=== PATIENT | female | born 1960 | race Caucasian/White ===

== ENCOUNTER 2019-09-03 23:00 | Inpatient (IN) | payer BC ==
[~2019-09-03] VITALS: Ht 175.3 cm; Wt 61.7 kg
[2019-09-04] MEDS ORDERED: OXYCODONE HCL 5MG TABLET PO PRN (00:15)
[2019-09-04] MEDS ORDERED: DEXTROSE 50% WATER 50ML SYRINGE IV PRN (00:15)
[2019-09-04 00:32] VITALS: BP_SYST 118; BP_SYST 134; BP_DIAS 60; BP_DIAS 72
[2019-09-04] MEDS ORDERED: BISACODYL 5MG TABLET PO PRN (00:45)
[2019-09-04] MEDS: OXYCODONE HCL 5MG TABLET PO PRN ×2 (00:58→09:59)
[2019-09-04] MEDS: ACETAMINOPHEN 325MG TABLET PO PRN ×3 (00:58→23:34)
[2019-09-04] MEDS: LORAZEPAM 1MG TABLET PO PRN ×2 (01:17→23:34)
[2019-09-04] MEDS ORDERED: MAGNESIUM CITRATE 300ML SOLUTION PO PRN (01:30)
[2019-09-04] MEDS ORDERED: ONDANSETRON HCL 4MG TABLET PO PRN (01:45)
[2019-09-04] MEDS ORDERED: SODIUM CHLORIDE 45ML SPRAY NS PRN (01:45)
[2019-09-04] MEDS ORDERED: METF-416 MT (01:48)
[2019-09-04 04:00] VITALS: BP 108/54
[2019-09-04] MEDS: SODIUM CHLORIDE 0.9% 1,000 ML IV SCH ×2 (04:00→15:59)
[2019-09-04] MEDS ORDERED: CEPHALEXIN 250MG CAPSULE PO NR (06:00)
[2019-09-04] MEDS: BLOOD SUGAR DIAGNOSTIC STRIP TEST SCH ×4 (06:02→21:22)
[2019-09-04] MEDS: OXYCODONE HCL 10MG TABLET SR 12HR PO PRN ×3 (06:19→21:46)
[2019-09-04 06:44] LABS: HEMATOCRIT 36.7 % (36.0-48.0); HEMOGLOBIN 12.8 g/dL (12.0-16.0); MEAN CORPUSCULAR HEMOGLOBIN 29.7 pg (28.0-32.0); MEAN CORPUSCULAR VOLUME 85.3 fL (81.0-99.0); PLATELET 327 x1000/uL (130-400)
[2019-09-04 06:49] LABS: CHLORIDE 103 mEq/L (98-107)
[2019-09-04] MEDS ORDERED: FAMOTIDINE 20MG TABLET PO SCH (09:00)
[2019-09-04] MEDS ORDERED: LIDOCAINE 5% PATCH TOP SCH (09:00)
[2019-09-04] MEDS: ALBUTEROL (0.083%) 2.5MG/3ML NEB HHN SCH ×2 (09:27→15:45)
[2019-09-04] MEDS: DOCUSATE SODIUM 100MG CAPSULE PO SCH ×2 (09:28→17:01)
[2019-09-04] MEDS: CEPHALEXIN 250MG CAPSULE PO SCH ×4 (09:29→21:45)
[2019-09-04] MEDS: ASPIRIN 81MG TABLET PO SCH (09:29)
[2019-09-04] MEDS: METHOCARBAMOL 500MG TABLET PO SCH ×2 (09:30→17:01)
[2019-09-04] MEDS: LISINOPRIL 5MG TABLET PO SCH (09:30)
[2019-09-04] MEDS: LACTOBACILLUS GG CAPSULE PO SCH (09:30)
[2019-09-04] MEDS: INSULIN LISPRO 100 UNITS/ML SUBCUT SCH ×4 (09:35→21:49)
[2019-09-04] MEDS: FAMOTIDINE 40MG TABLET PO SCH (09:36)
[2019-09-04] MEDS: GABAPENTIN 300MG CAPSULE PO SCH ×3 (09:37→21:44)
[2019-09-04 09:55] VITALS: BP 114/58
[2019-09-04 12:00] VITALS: BP 107/47
[2019-09-04] MEDS: HEPARIN 5000 UNITS/ML VIAL SUBCUT SCH ×2 (12:35→21:47)
[2019-09-04] MEDS: POLYETHYLENE GLYCOL 3350 (17GM) 1 DOSE PACK PO SCH (12:38)
[2019-09-04] MEDS: BISACODYL 10MG SUPP PR SCH (12:39)
[2019-09-04 16:00] VITALS: BP 94/53
[2019-09-04 20:00] VITALS: BP 112/57
[2019-09-04] MEDS: ATORVASTATIN CALCIUM 20MG TABLET PO SCH (21:45)
[2019-09-04] MEDS: LIDOCAINE 5% PATCH TOP SCH (21:47)
[2019-09-04] MEDS: INSULIN GLARGINE UD 100 UNITS/ML SYR SUBCUT SCH (21:49)
[2019-09-05] VITALS: BP 107/53
[2019-09-05 04:00] VITALS: BP 112/58
[2019-09-05] MEDS: BLOOD SUGAR DIAGNOSTIC STRIP TEST SCH ×4 (06:14→21:16)
[2019-09-05] MEDS: GABAPENTIN 300MG CAPSULE PO SCH ×3 (06:16→21:21)
[2019-09-05 08:00] VITALS: BP 106/57
[2019-09-05] MEDS: OXYCODONE HCL 10MG TABLET SR 12HR PO PRN ×4 (08:13→21:35)
[2019-09-05] MEDS: INSULIN LISPRO 100 UNITS/ML SUBCUT SCH ×4 (08:16→21:18)
[2019-09-05] MEDS: ALBUTEROL (0.083%) 2.5MG/3ML NEB HHN SCH ×3 (08:54→21:10)
[2019-09-05] MEDS: LISINOPRIL 5MG TABLET PO SCH (09:00)
[2019-09-05] MEDS ORDERED: METFORMIN HCL 500MG TABLET PO SCH (09:00)
[2019-09-05] MEDS: LACTOBACILLUS GG CAPSULE PO SCH (09:21)
[2019-09-05] MEDS: CEPHALEXIN 250MG CAPSULE PO SCH ×4 (09:21→21:16)
[2019-09-05] MEDS: DOCUSATE SODIUM 100MG CAPSULE PO SCH ×2 (09:21→18:23)
[2019-09-05] MEDS: FAMOTIDINE 40MG TABLET PO SCH (09:22)
[2019-09-05] MEDS: POLYETHYLENE GLYCOL 3350 (17GM) 1 DOSE PACK PO SCH (09:22)
[2019-09-05] MEDS: ASPIRIN 81MG TABLET PO SCH (09:22)
[2019-09-05] MEDS: HEPARIN 5000 UNITS/ML VIAL SUBCUT SCH ×2 (09:53→21:16)
[2019-09-05] MEDS: BISACODYL 10MG SUPP PR SCH (09:55)
[2019-09-05 12:00] VITALS: BP 128/71
[2019-09-05 16:37] VITALS: BP 116/58
[2019-09-05] MEDS: METFORMIN HCL 500MG TABLET PO SCH (18:23)
[2019-09-05 20:25] VITALS: BP 124/64
[2019-09-05] MEDS: ATORVASTATIN CALCIUM 20MG TABLET PO SCH (21:16)
[2019-09-05] MEDS: INSULIN GLARGINE UD 100 UNITS/ML SYR SUBCUT SCH (21:19)
[2019-09-05] MEDS: LIDOCAINE 5% PATCH TOP SCH (21:20)
[2019-09-05] MEDS: ACETAMINOPHEN 325MG TABLET PO PRN (23:14)
[2019-09-05] MEDS: LORAZEPAM 1MG TABLET PO PRN (23:14)
[2019-09-06] VITALS (8 sets, daily range): BP systolic 105–130; BP diastolic 47–75
[2019-09-06] MEDS: OXYCODONE HCL 10MG TABLET SR 12HR PO PRN ×4 (03:41→21:17)
[2019-09-06] MEDS: ALBUTEROL (0.083%) 2.5MG/3ML NEB HHN SCH ×3 (05:50→23:06)
[2019-09-06] MEDS: GABAPENTIN 300MG CAPSULE PO SCH ×3 (06:01→21:17)
[2019-09-06] MEDS: BLOOD SUGAR DIAGNOSTIC STRIP TEST SCH ×3 (06:22→20:24)
[2019-09-06] MEDS: INSULIN LISPRO 100 UNITS/ML SUBCUT SCH ×4 (08:20→21:19)
[2019-09-06] MEDS: LISINOPRIL 5MG TABLET PO SCH (09:00)
[2019-09-06] MEDS: CEPHALEXIN 250MG CAPSULE PO SCH ×4 (09:34→21:17)
[2019-09-06] MEDS: DOCUSATE SODIUM 100MG CAPSULE PO SCH ×2 (09:34→18:01)
[2019-09-06] MEDS: METFORMIN HCL 500MG TABLET PO SCH ×2 (09:35→18:01)
[2019-09-06] MEDS: LACTOBACILLUS GG CAPSULE PO SCH (09:35)
[2019-09-06] MEDS: FAMOTIDINE 40MG TABLET PO SCH (09:35)
[2019-09-06] MEDS: ASPIRIN 81MG TABLET PO SCH (09:35)
[2019-09-06] MEDS: POLYETHYLENE GLYCOL 3350 (17GM) 1 DOSE PACK PO SCH (09:44)
[2019-09-06] MEDS: BISACODYL 10MG SUPP PR SCH (09:45)
[2019-09-06] MEDS: HEPARIN 5000 UNITS/ML VIAL SUBCUT SCH ×2 (09:45→21:18)
[2019-09-06] MEDS: ATORVASTATIN CALCIUM 20MG TABLET PO SCH (21:16)
[2019-09-06] MEDS: LIDOCAINE 5% PATCH TOP SCH (21:18)
[2019-09-06] MEDS: INSULIN GLARGINE UD 100 UNITS/ML SYR SUBCUT SCH (21:19)
[2019-09-06] MEDS: LORAZEPAM 1MG TABLET PO PRN (21:40)
[2019-09-06] MEDS: ACETAMINOPHEN 325MG TABLET PO PRN (23:51)
[2019-09-07] VITALS (7 sets, daily range): BP systolic 103–125; BP diastolic 55–86
[2019-09-07] MEDS: ALBUTEROL (0.083%) 2.5MG/3ML NEB HHN SCH ×4 (03:44→21:25)
[2019-09-07] MEDS: OXYCODONE HCL 10MG TABLET SR 12HR PO PRN ×3 (04:07→19:44)
[2019-09-07] MEDS: LORAZEPAM 1MG TABLET PO PRN ×3 (04:07→21:02)
[2019-09-07] MEDS: GABAPENTIN 300MG CAPSULE PO SCH ×3 (05:57→21:02)
[2019-09-07] MEDS: BLOOD SUGAR DIAGNOSTIC STRIP TEST SCH ×4 (08:05→21:00)
[2019-09-07] MEDS: POLYETHYLENE GLYCOL 3350 (17GM) 1 DOSE PACK PO SCH (08:32)
[2019-09-07] MEDS: CEPHALEXIN 250MG CAPSULE PO SCH ×4 (08:32→21:02)
[2019-09-07] MEDS: ASPIRIN 81MG TABLET PO SCH (08:32)
[2019-09-07] MEDS: HEPARIN 5000 UNITS/ML VIAL SUBCUT SCH ×2 (08:32→21:02)
[2019-09-07] MEDS: DOCUSATE SODIUM 100MG CAPSULE PO SCH ×2 (08:32→17:49)
[2019-09-07] MEDS: BISACODYL 10MG SUPP PR SCH (08:32)
[2019-09-07] MEDS: LACTOBACILLUS GG CAPSULE PO SCH (08:33)
[2019-09-07] MEDS: METFORMIN HCL 500MG TABLET PO SCH ×2 (08:33→17:49)
[2019-09-07] MEDS: FAMOTIDINE 40MG TABLET PO SCH (08:33)
[2019-09-07] MEDS: INSULIN LISPRO 100 UNITS/ML SUBCUT SCH ×4 (08:47→21:04)
[2019-09-07] MEDS: LISINOPRIL 5MG TABLET PO SCH (08:48)
[2019-09-07 17:43] LABS: CLARITY URINE CLEAR (CLEAR); COLOR URINE YELLOW (YELLOW); KETONES URINE NEGATIVE (NEGATIVE); LEUKOCYTE ESTERASE URINE NEGATIVE (NEGATIVE); NITRITE URINE NEGATIVE (NEGATIVE); OCCULT BLOOD URINE TRACE (NEGATIVE); PH URINE 6.5 (4.5-8.0); PROTEIN URINE NEGATIVE (NEGATIVE); SPECIFIC GRAVITY URINE 1.012 (1.005-1.030); UROBILINOGEN URINE 0.2 E.U./dL (0.2-1.0)
[2019-09-07] MEDS: ATORVASTATIN CALCIUM 20MG TABLET PO SCH (21:02)
[2019-09-07] MEDS: INSULIN GLARGINE UD 100 UNITS/ML SYR SUBCUT SCH (21:04)
[2019-09-07] MEDS: LIDOCAINE 5% PATCH TOP SCH (21:05)
[2019-09-08 00:16] VITALS: BP 114/66
[2019-09-08 04:00] VITALS: BP 111/71
[2019-09-08] MEDS: GABAPENTIN 300MG CAPSULE PO SCH ×3 (06:16→21:26)
[2019-09-08] MEDS: BLOOD SUGAR DIAGNOSTIC STRIP TEST SCH ×4 (06:57→21:29)
[2019-09-08 08:03] VITALS: BP 126/77
[2019-09-08 08:16] LABS: CHLORIDE 101 mEq/L (98-107)
[2019-09-08 08:17] LABS: BASOPHILS % 0.4 % (0.0-2.0); EOSINOPHILS % 3.4 % (0.0-5.0); HEMOGLOBIN. 12.9 g/dL (12.0-16.0); LYMPHOCYTES % 27.3 % (20.0-50.0); MEAN CORPUSCULAR HEMOGLOBIN 29.4 pg (28.0-32.0); MEAN CORPUSCULAR VOLUME 86.5 fL (81.0-99.0); MEAN PLATELET VOLUME 7.9 fl (7.4-10.4); MONOCYTES % 9.7 % (2.0-8.0); NEUTROPHILS % 59.2 % (40.0-76.0); PLATELET 222 x1000/uL (130-400); RED BLOOD CELL COUNT 4.39 mill/uL (4.2-5.4); RED CELL DISTRIBUTION WIDTH 14.4 % (11.6-14.6)
[2019-09-08] MEDS: INSULIN LISPRO 100 UNITS/ML SUBCUT SCH ×4 (08:17→21:29)
[2019-09-08] MEDS: LACTOBACILLUS GG CAPSULE PO SCH (08:18)
[2019-09-08] MEDS: FAMOTIDINE 40MG TABLET PO SCH (08:19)
[2019-09-08] MEDS: OXYCODONE HCL 10MG TABLET SR 12HR PO PRN ×2 (08:19→15:28)
[2019-09-08] MEDS: LISINOPRIL 5MG TABLET PO SCH (08:19)
[2019-09-08] MEDS: METFORMIN HCL 500MG TABLET PO SCH ×2 (08:20→18:45)
[2019-09-08] MEDS: CEPHALEXIN 250MG CAPSULE PO SCH ×4 (08:20→21:26)
[2019-09-08] MEDS: ASPIRIN 81MG TABLET PO SCH (08:20)
[2019-09-08] MEDS: HEPARIN 5000 UNITS/ML VIAL SUBCUT SCH ×2 (08:21→21:27)
[2019-09-08] MEDS: POLYETHYLENE GLYCOL 3350 (17GM) 1 DOSE PACK PO SCH (08:21)
[2019-09-08] MEDS: BISACODYL 10MG SUPP PR SCH (08:21)
[2019-09-08 08:33] LABS: PHOSPHORUS 3.8 mg/dL (2.5-4.9)
[2019-09-08] MEDS: ALBUTEROL (0.083%) 2.5MG/3ML NEB HHN SCH ×3 (08:35→20:36)
[2019-09-08 08:41] LABS: TOTAL IRON BINDING CAPACITY 305 ug/dL (250-450)
[2019-09-08 09:38] LABS: FOLIC ACID (FOLATE) SERUM 10.2 ng/mL (>5.38)
[2019-09-08] MEDS: LORAZEPAM 1MG TABLET PO PRN ×2 (09:59→22:58)
[2019-09-08] MEDS: DOCUSATE SODIUM 100MG CAPSULE PO SCH ×2 (09:59→18:45)
[2019-09-08 12:02] VITALS: BP 103/56
[2019-09-08] MEDS: CYANOCOBALAMIN 1000MCG/ML VIAL IM SCH (15:28)
[2019-09-08 16:03] VITALS: BP 98/49
[2019-09-08 20:00] VITALS: BP 115/60
[2019-09-08] MEDS: ATORVASTATIN CALCIUM 20MG TABLET PO SCH (21:25)
[2019-09-08] MEDS: INSULIN GLARGINE UD 100 UNITS/ML SYR SUBCUT SCH (21:28)
[2019-09-08] MEDS: LIDOCAINE 5% PATCH TOP SCH (21:30)
[2019-09-09] VITALS: BP 109/54
[2019-09-09] MEDS: ALBUTEROL (0.083%) 2.5MG/3ML NEB HHN SCH ×4 (02:53→20:40)
[2019-09-09 04:00] VITALS: BP 110/59
[2019-09-09] MEDS ORDERED: OXYCODONE HCL 10MG TABLET SR 12HR PO PRN (05:45)
[2019-09-09] MEDS: BLOOD SUGAR DIAGNOSTIC STRIP TEST SCH ×4 (06:55→21:20)
[2019-09-09] MEDS: GABAPENTIN 300MG CAPSULE PO SCH ×3 (06:55→21:17)
[2019-09-09 07:11] LABS: T4 FREE 1.06 ng/dL (0.76-1.46)
[2019-09-09] MEDS: INSULIN LISPRO 100 UNITS/ML SUBCUT SCH ×4 (07:50→22:47)
[2019-09-09 08:00] VITALS: BP 96/57
[2019-09-09] MEDS: LISINOPRIL 5MG TABLET PO SCH (09:00)
[2019-09-09] MEDS ORDERED: LORAZEPAM 2MG/ML CPJ IV PRN (09:00)
[2019-09-09] MEDS: METFORMIN HCL 500MG TABLET PO SCH ×2 (09:24→17:32)
[2019-09-09] MEDS: POLYETHYLENE GLYCOL 3350 (17GM) 1 DOSE PACK PO SCH (09:25)
[2019-09-09] MEDS: DOCUSATE SODIUM 100MG CAPSULE PO SCH ×2 (09:25→17:33)
[2019-09-09] MEDS: ASPIRIN 81MG TABLET PO SCH (09:25)
[2019-09-09] MEDS: FAMOTIDINE 40MG TABLET PO SCH (09:25)
[2019-09-09] MEDS: CEPHALEXIN 250MG CAPSULE PO SCH ×4 (09:26→22:44)
[2019-09-09] MEDS: BISACODYL 10MG SUPP PR SCH (09:27)
[2019-09-09] MEDS: HEPARIN 5000 UNITS/ML VIAL SUBCUT SCH ×3 (09:28→22:44)
[2019-09-09] MEDS: CYANOCOBALAMIN 1000MCG/ML VIAL IM SCH (09:29)
[2019-09-09] MEDS: LACTOBACILLUS GG CAPSULE PO SCH (09:35)
[2019-09-09 12:00] VITALS: BP 117/63
[2019-09-09 16:00] VITALS: BP 109/56
[2019-09-09 20:00] VITALS: BP 109/55
[2019-09-09] MEDS: OXYCODONE HCL 5MG TABLET PO PRN (21:19)
[2019-09-09] MEDS: ATORVASTATIN CALCIUM 20MG TABLET PO SCH (21:19)
[2019-09-09] MEDS: LIDOCAINE 5% PATCH TOP SCH (21:19)
[2019-09-09] MEDS ORDERED: INSULIN GLARGINE UD 100 UNITS/ML SYR SUBCUT SCH (22:00)
[2019-09-09] MEDS: LORAZEPAM 1MG TABLET PO PRN (22:44)
[2019-09-10] VITALS: BP 108/60
[2019-09-10] MEDS: ALBUTEROL (0.083%) 2.5MG/3ML NEB HHN SCH ×3 (01:11→13:38)
[2019-09-10 04:00] VITALS: BP 97/56
[2019-09-10] MEDS: OXYCODONE HCL 5MG TABLET PO PRN ×2 (06:04→13:27)
[2019-09-10] MEDS: GABAPENTIN 300MG CAPSULE PO SCH ×2 (06:04→13:23)
[2019-09-10] MEDS: BLOOD SUGAR DIAGNOSTIC STRIP TEST SCH ×3 (06:05→17:58)
[2019-09-10 08:00] VITALS: BP 108/50
[2019-09-10] MEDS: LISINOPRIL 5MG TABLET PO SCH (08:21)
[2019-09-10] MEDS: CEPHALEXIN 250MG CAPSULE PO SCH ×3 (09:57→17:57)
[2019-09-10] MEDS: ASPIRIN 81MG TABLET PO SCH (09:57)
[2019-09-10] MEDS: FAMOTIDINE 40MG TABLET PO SCH (09:57)
[2019-09-10] MEDS: METFORMIN HCL 500MG TABLET PO SCH ×2 (09:57→17:58)
[2019-09-10] MEDS: CYANOCOBALAMIN 1000MCG/ML VIAL IM SCH (09:58)
[2019-09-10] MEDS: DOCUSATE SODIUM 100MG CAPSULE PO SCH ×2 (09:58→17:58)
[2019-09-10] MEDS: BISACODYL 10MG SUPP PR SCH (09:58)
[2019-09-10] MEDS: LACTOBACILLUS GG CAPSULE PO SCH (09:58)
[2019-09-10] MEDS: POLYETHYLENE GLYCOL 3350 (17GM) 1 DOSE PACK PO SCH (10:12)
[2019-09-10] MEDS: INSULIN LISPRO 100 UNITS/ML SUBCUT SCH ×3 (10:12→18:13)
[2019-09-10 11:01] VITALS: BP 108/50
[2019-09-10 12:00] VITALS: BP 112/65
[2019-09-10] MEDS: LORAZEPAM 1MG TABLET PO PRN ×2 (12:01→18:38)
[2019-09-10 16:00] VITALS: BP 117/63
[2019-09-12 06:11] LABS: 25-HYDROXY VITAMIN D3 32 ng/mL (.)
== END 2019-09-10 19:00 | DRG 602 ==
LOC: 6WST 23:00
PROVIDERS: ADMIT Internal Medicine; ATTEND Internal Medicine
DX: L03.113 Cellulitis of right upper limb (principal); G82.50 Quadriplegia, unspecified; K59.2 Neurogenic bowel, not elsewhere classified; N39.0 Urinary tract infection, site not specified; N31.9 Neuromuscular dysfunction of bladder, unspecified; E11.9 Type 2 diabetes mellitus without complications; E78.00 Pure hypercholesterolemia, unspecified; E78.5 Hyperlipidemia, unspecified; G83.81 Brown-Sequard syndrome; I10 Essential (primary) hypertension; I95.1 Orthostatic hypotension; J45.909 Unspecified asthma, uncomplicated; L40.9 Psoriasis, unspecified; F90.9 Attention-deficit hyperactivity disorder, unspecified type; R26.9 Unspecified abnormalities of gait and mobility; R33.9 Retention of urine, unspecified; Z98.1 Arthrodesis status; Z88.2 Allergy status to sulfonamides; Z79.84 Long term (current) use of oral hypoglycemic drugs
CPT/HCPCS: 36415; 72050; 73030; 73221; 80048; 81003; 82306; 82607; 82728; 82746; 82962; 83036; 83540; 83550; 83735; 84100; 84134; 84439; 84443; 84481; 85025; 85027; 92610; 93970; 94640; 97110; 97116; 97163; 97166; J1644; J1815; J2060; J3420; J7030

== ENCOUNTER 2019-09-10 18:55 | Inpatient (IN) | payer BC ==
[~2019-09-10] VITALS: Ht 175.3 cm; Wt 61.7 kg
[~2019-09-10 18:55] MED LIST: METF-416 MT
[2019-09-10 19:00] VITALS: BP 105/55
[2019-09-10 20:00] VITALS: BP 125/55
[2019-09-10] MEDS ORDERED: BISACODYL 5MG TABLET PO PRN (20:15)
[2019-09-10] MEDS ORDERED: DEXTROSE 50% WATER 50ML SYRINGE IV PRN (20:15)
[2019-09-10] MEDS: INSULIN LISPRO 100 UNITS/ML SUBCUT SCH (21:00)
[2019-09-10] MEDS: ATORVASTATIN CALCIUM 20MG TABLET PO SCH (21:04)
[2019-09-10] MEDS: CEPHALEXIN 250MG CAPSULE PO SCH (21:04)
[2019-09-10] MEDS: OXYCODONE HCL 5MG TABLET PO PRN (21:04)
[2019-09-10] MEDS: LIDOCAINE 5% PATCH TOP SCH (21:13)
[2019-09-10] MEDS: BLOOD SUGAR DIAGNOSTIC STRIP TEST SCH (21:13)
[2019-09-10] MEDS: HEPARIN 5000 UNITS/ML VIAL SUBCUT SCH (21:25)
[2019-09-10] MEDS ORDERED: SODIUM CHLORIDE 45ML SPRAY NS PRN (22:00)
[2019-09-10] MEDS ORDERED: MAGNESIUM CITRATE 300ML SOLUTION PO PRN (22:00)
[2019-09-10] MEDS: GABAPENTIN 300MG CAPSULE PO SCH (22:59)
[2019-09-10] MEDS: INSULIN GLARGINE UD 100 UNITS/ML SYR SUBCUT SCH (23:29)
[2019-09-11] MEDS: ACETAMINOPHEN 325MG TABLET PO PRN ×3 (01:00→22:52)
[2019-09-11] MEDS: ALBUTEROL (0.083%) 2.5MG/3ML NEB HHN SCH ×4 (02:11→19:49)
[2019-09-11] MEDS: GABAPENTIN 300MG CAPSULE PO SCH ×3 (06:21→21:21)
[2019-09-11] MEDS: BLOOD SUGAR DIAGNOSTIC STRIP TEST SCH ×4 (06:31→21:23)
[2019-09-11] MEDS: INSULIN LISPRO 100 UNITS/ML SUBCUT SCH ×4 (06:31→22:00)
[2019-09-11] MEDS: OXYCODONE HCL 5MG TABLET PO PRN ×3 (06:45→21:21)
[2019-09-11 06:55] LABS: BASOPHILS % 0.4 % (0.0-2.0); EOSINOPHILS % 4.5 % (0.0-5.0); HEMATOCRIT. 36.1 % (36.0-48.0); HEMOGLOBIN. 12.6 g/dL (12.0-16.0); LYMPHOCYTES % 28.9 % (20.0-50.0); MEAN CORPUSCULAR HEMOGLOBIN 30.1 pg (28.0-32.0); MEAN CORPUSCULAR VOLUME 86.2 fL (81.0-99.0); MEAN PLATELET VOLUME 7.9 fl (7.4-10.4); NEUTROPHILS % 56.2 % (40.0-76.0); PLATELET 156 x1000/uL (130-400); RED BLOOD CELL COUNT 4.19 mill/uL (4.2-5.4); RED CELL DISTRIBUTION WIDTH 14.2 % (11.6-14.6)
[2019-09-11 07:06] LABS: CHLORIDE 106 mEq/L (98-107)
[2019-09-11 08:42] VITALS: BP 115/63
[2019-09-11] MEDS: CEPHALEXIN 250MG CAPSULE PO SCH ×4 (09:40→21:22)
[2019-09-11] MEDS: ASPIRIN 81MG TABLET PO SCH (09:41)
[2019-09-11] MEDS: DOCUSATE SODIUM 100MG CAPSULE PO SCH ×2 (09:41→17:19)
[2019-09-11] MEDS: LISINOPRIL 5MG TABLET PO SCH (09:41)
[2019-09-11] MEDS: FAMOTIDINE 20MG TABLET PO SCH (09:41)
[2019-09-11] MEDS: METFORMIN HCL 500MG TABLET PO SCH ×2 (09:41→17:20)
[2019-09-11] MEDS: LACTOBACILLUS GG CAPSULE PO SCH (09:41)
[2019-09-11] MEDS: HEPARIN 5000 UNITS/ML VIAL SUBCUT SCH ×2 (09:42→21:22)
[2019-09-11] MEDS: POLYETHYLENE GLYCOL 3350 (17GM) 1 DOSE PACK PO SCH (09:44)
[2019-09-11] MEDS: ONDANSETRON HCL 4MG TABLET PO PRN (11:03)
[2019-09-11] MEDS: BISACODYL 10MG SUPP PR PRN (11:55)
[2019-09-11 20:00] VITALS: BP 101/58
[2019-09-11] MEDS: ATORVASTATIN CALCIUM 20MG TABLET PO SCH (21:21)
[2019-09-11] MEDS: LIDOCAINE 5% PATCH TOP SCH (21:23)
[2019-09-11] MEDS: INSULIN GLARGINE UD 100 UNITS/ML SYR SUBCUT SCH (22:18)
[2019-09-11] MEDS: LORAZEPAM 1MG TABLET PO PRN (22:52)
[2019-09-12] MEDS: ALBUTEROL (0.083%) 2.5MG/3ML NEB HHN SCH ×4 (02:07→20:26)
[2019-09-12] MEDS: GABAPENTIN 300MG CAPSULE PO SCH ×3 (06:16→21:18)
[2019-09-12] MEDS: ACETAMINOPHEN 325MG TABLET PO PRN (06:16)
[2019-09-12] MEDS: BLOOD SUGAR DIAGNOSTIC STRIP TEST SCH ×4 (06:16→21:17)
[2019-09-12 07:14] LABS: BASOPHILS % 0.6 % (0.0-2.0); EOSINOPHILS % 3.6 % (0.0-5.0); HEMATOCRIT. 34.9 % (36.0-48.0); HEMOGLOBIN. 12.3 g/dL (12.0-16.0); LYMPHOCYTES % 28.8 % (20.0-50.0); MEAN CORPUSCULAR HEMOGLOBIN 30.2 pg (28.0-32.0); MEAN CORPUSCULAR VOLUME 86.1 fL (81.0-99.0); MEAN PLATELET VOLUME 7.7 fl (7.4-10.4); MONOCYTES % 9.8 % (2.0-8.0); NEUTROPHILS % 57.2 % (40.0-76.0); PLATELET 141 x1000/uL (130-400); RED BLOOD CELL COUNT 4.05 mill/uL (4.2-5.4); RED CELL DISTRIBUTION WIDTH 14.6 % (11.6-14.6)
[2019-09-12 07:21] LABS: PROTHROMBIN TIME 10.6 sec (9.6-11.0)
[2019-09-12 07:59] LABS: CHLORIDE 104 mEq/L (98-107)
[2019-09-12 08:13] VITALS: BP 95/58
[2019-09-12 08:50] VITALS: BP 112/61
[2019-09-12 09:00] VITALS: BP_SYST 100; BP_SYST 109; BP_SYST 99; BP_DIAS 57; BP_DIAS 59; BP_DIAS 61
[2019-09-12] MEDS: LISINOPRIL 5MG TABLET PO SCH ×2 (09:00→09:10)
[2019-09-12] MEDS: OXYCODONE HCL 5MG TABLET PO PRN ×3 (09:09→18:12)
[2019-09-12] MEDS: DOCUSATE SODIUM 100MG CAPSULE PO SCH ×2 (09:10→17:06)
[2019-09-12] MEDS: FAMOTIDINE 20MG TABLET PO SCH (09:10)
[2019-09-12] MEDS: POLYETHYLENE GLYCOL 3350 (17GM) 1 DOSE PACK PO SCH (09:10)
[2019-09-12] MEDS: ASPIRIN 81MG TABLET PO SCH (09:11)
[2019-09-12] MEDS: LACTOBACILLUS GG CAPSULE PO SCH (09:11)
[2019-09-12] MEDS: METFORMIN HCL 500MG TABLET PO SCH ×2 (09:11→17:06)
[2019-09-12] MEDS: INSULIN LISPRO 100 UNITS/ML SUBCUT SCH ×4 (09:19→21:57)
[2019-09-12] MEDS: HEPARIN 5000 UNITS/ML VIAL SUBCUT SCH ×2 (09:50→21:16)
[2019-09-12] MEDS: ONDANSETRON HCL 4MG TABLET PO PRN (11:45)
[2019-09-12] MEDS: BACLOFEN 10MG TABLET PO PRN (12:41)
[2019-09-12] MEDS: BISACODYL 10MG SUPP PR PRN (17:06)
[2019-09-12] MEDS: ERGOCALCIFEROL 50000UNITS CAPSULE PO SCH (17:06)
[2019-09-12 20:00] VITALS: BP 113/63
[2019-09-12] MEDS: ATORVASTATIN CALCIUM 20MG TABLET PO SCH (21:16)
[2019-09-12] MEDS: LIDOCAINE 5% PATCH TOP SCH (21:18)
[2019-09-12] MEDS: INSULIN GLARGINE UD 100 UNITS/ML SYR SUBCUT SCH (21:56)
[2019-09-12] MEDS ORDERED: IOHEXOL-350 100 ML BOTTLE ONE (22:37)
[2019-09-13] MEDS: ALBUTEROL (0.083%) 2.5MG/3ML NEB HHN SCH ×5 (00:25→21:37)
[2019-09-13] MEDS: OXYCODONE HCL 5MG TABLET PO PRN ×5 (00:49→23:00)
[2019-09-13] MEDS: LORAZEPAM 1MG TABLET PO PRN (02:05)
[2019-09-13] MEDS: INSULIN LISPRO 100 UNITS/ML SUBCUT SCH ×4 (06:00→23:11)
[2019-09-13] MEDS: BLOOD SUGAR DIAGNOSTIC STRIP TEST SCH ×4 (06:00→21:34)
[2019-09-13] MEDS: GABAPENTIN 300MG CAPSULE PO SCH ×3 (06:00→21:24)
[2019-09-13] MEDS: LACTOBACILLUS GG CAPSULE PO SCH (08:01)
[2019-09-13] MEDS: LISINOPRIL 5MG TABLET PO SCH (08:01)
[2019-09-13] MEDS: FAMOTIDINE 20MG TABLET PO SCH (08:01)
[2019-09-13] MEDS: DOCUSATE SODIUM 100MG CAPSULE PO SCH ×2 (08:01→16:27)
[2019-09-13] MEDS: ASPIRIN 81MG TABLET PO SCH (08:01)
[2019-09-13] MEDS: HEPARIN 5000 UNITS/ML VIAL SUBCUT SCH ×2 (08:03→21:24)
[2019-09-13] MEDS: METFORMIN HCL 500MG TABLET PO SCH ×2 (08:07→16:27)
[2019-09-13] MEDS: POLYETHYLENE GLYCOL 3350 (17GM) 1 DOSE PACK PO SCH (09:00)
[2019-09-13 09:31] VITALS: BP 114/61
[2019-09-13] MEDS: ONDANSETRON HCL 4MG TABLET PO PRN ×3 (09:50→16:27)
[2019-09-13] MEDS: BACLOFEN 10MG TABLET PO PRN (11:55)
[2019-09-13 20:00] VITALS: BP 119/64
[2019-09-13] MEDS: ATORVASTATIN CALCIUM 20MG TABLET PO SCH (21:23)
[2019-09-13] MEDS: LIDOCAINE 5% PATCH TOP SCH (21:25)
[2019-09-13] MEDS: INSULIN GLARGINE UD 100 UNITS/ML SYR SUBCUT SCH (23:12)
[2019-09-14] MEDS: ALBUTEROL (0.083%) 2.5MG/3ML NEB HHN SCH ×4 (01:05→21:12)
[2019-09-14] MEDS: LORAZEPAM 1MG TABLET PO PRN (05:04)
[2019-09-14] MEDS: BLOOD SUGAR DIAGNOSTIC STRIP TEST SCH ×4 (06:30→21:50)
[2019-09-14] MEDS: GABAPENTIN 300MG CAPSULE PO SCH ×3 (07:34→21:38)
[2019-09-14] MEDS: INSULIN LISPRO 100 UNITS/ML SUBCUT SCH ×4 (07:37→22:32)
[2019-09-14 08:18] VITALS: BP 102/54
[2019-09-14] MEDS: LISINOPRIL 5MG TABLET PO SCH (09:00)
[2019-09-14] MEDS: LACTOBACILLUS GG CAPSULE PO SCH (09:44)
[2019-09-14] MEDS: METFORMIN HCL 500MG TABLET PO SCH ×2 (09:44→17:16)
[2019-09-14] MEDS: DOCUSATE SODIUM 100MG CAPSULE PO SCH ×2 (09:45→17:16)
[2019-09-14] MEDS: FAMOTIDINE 20MG TABLET PO SCH (09:45)
[2019-09-14] MEDS: ASPIRIN 81MG TABLET PO SCH (09:45)
[2019-09-14] MEDS: ONDANSETRON HCL 4MG TABLET PO PRN (09:45)
[2019-09-14] MEDS: OXYCODONE HCL 5MG TABLET PO PRN ×4 (10:41→21:49)
[2019-09-14] MEDS: HEPARIN 5000 UNITS/ML VIAL SUBCUT SCH ×2 (10:54→21:37)
[2019-09-14] MEDS: BACLOFEN 10MG TABLET PO PRN (11:01)
[2019-09-14] MEDS: BISACODYL 10MG SUPP PR PRN (11:01)
[2019-09-14] MEDS: POLYETHYLENE GLYCOL 3350 (17GM) 1 DOSE PACK PO SCH (11:02)
[2019-09-14] MEDS: ACETAMINOPHEN 325MG TABLET PO PRN (13:23)
[2019-09-14 20:00] VITALS: BP 119/68
[2019-09-14] MEDS: LIDOCAINE 5% PATCH TOP SCH (21:36)
[2019-09-14] MEDS: ATORVASTATIN CALCIUM 20MG TABLET PO SCH (21:38)
[2019-09-14] MEDS: INSULIN GLARGINE UD 100 UNITS/ML SYR SUBCUT SCH (22:32)
[2019-09-15] MEDS: ALBUTEROL (0.083%) 2.5MG/3ML NEB HHN SCH ×2 (02:24→20:40)
[2019-09-15] MEDS: GABAPENTIN 300MG CAPSULE PO SCH ×3 (06:22→21:59)
[2019-09-15] MEDS: ACETAMINOPHEN 325MG TABLET PO PRN ×3 (06:27→19:50)
[2019-09-15] MEDS: BLOOD SUGAR DIAGNOSTIC STRIP TEST SCH ×4 (06:29→22:00)
[2019-09-15] MEDS: OXYCODONE HCL 5MG TABLET PO PRN ×4 (07:53→22:18)
[2019-09-15] MEDS: LACTOBACILLUS GG CAPSULE PO SCH (08:00)
[2019-09-15] MEDS: FAMOTIDINE 20MG TABLET PO SCH (08:00)
[2019-09-15] MEDS: POLYETHYLENE GLYCOL 3350 (17GM) 1 DOSE PACK PO SCH (08:00)
[2019-09-15] MEDS: METFORMIN HCL 500MG TABLET PO SCH ×2 (08:00→16:58)
[2019-09-15] MEDS: DOCUSATE SODIUM 100MG CAPSULE PO SCH ×2 (08:00→16:58)
[2019-09-15] MEDS: HEPARIN 5000 UNITS/ML VIAL SUBCUT SCH ×2 (08:00→21:59)
[2019-09-15] MEDS: ASPIRIN 81MG TABLET PO SCH (08:00)
[2019-09-15] MEDS: INSULIN LISPRO 100 UNITS/ML SUBCUT SCH ×4 (08:10→22:20)
[2019-09-15] MEDS: LISINOPRIL 5MG TABLET PO SCH (08:12)
[2019-09-15 08:42] VITALS: BP 107/58
[2019-09-15 20:00] VITALS: BP 121/59
[2019-09-15] MEDS: LORAZEPAM 1MG TABLET PO PRN (21:04)
[2019-09-15] MEDS: ATORVASTATIN CALCIUM 20MG TABLET PO SCH (21:04)
[2019-09-15] MEDS: LIDOCAINE 5% PATCH TOP SCH (22:00)
[2019-09-15] MEDS: INSULIN GLARGINE UD 100 UNITS/ML SYR SUBCUT SCH (22:21)
[2019-09-16] MEDS: ALBUTEROL (0.083%) 2.5MG/3ML NEB HHN SCH ×4 (01:47→21:11)
[2019-09-16] MEDS: GABAPENTIN 300MG CAPSULE PO SCH ×3 (06:10→21:20)
[2019-09-16] MEDS: OXYCODONE HCL 5MG TABLET PO PRN ×2 (06:35→13:47)
[2019-09-16] MEDS: BLOOD SUGAR DIAGNOSTIC STRIP TEST SCH ×4 (06:40→21:25)
[2019-09-16] MEDS: INSULIN LISPRO 100 UNITS/ML SUBCUT SCH ×4 (06:40→21:57)
[2019-09-16 07:04] LABS: PROTHROMBIN TIME 10.5 sec (9.6-11.0)
[2019-09-16 07:11] LABS: BASOPHILS % 0.6 % (0.0-2.0); HEMATOCRIT. 36.1 % (36.0-48.0); HEMOGLOBIN. 12.4 g/dL (12.0-16.0); MEAN CORPUSCULAR VOLUME 87.2 fL (81.0-99.0); MEAN PLATELET VOLUME 7.8 fl (7.4-10.4); MONOCYTES % 8.5 % (2.0-8.0); NEUTROPHILS % 58.9 % (40.0-76.0); PLATELET 120 x1000/uL (130-400); RED BLOOD CELL COUNT 4.14 mill/uL (4.2-5.4); RED CELL DISTRIBUTION WIDTH 14.7 % (11.6-14.6)
[2019-09-16 07:14] LABS: CHLORIDE 108 mEq/L (98-107)
[2019-09-16 08:00] VITALS: BP 136/70
[2019-09-16] MEDS: LISINOPRIL 5MG TABLET PO SCH ×2 (09:00→09:40)
[2019-09-16] MEDS: FAMOTIDINE 20MG TABLET PO SCH (09:39)
[2019-09-16] MEDS: ASPIRIN 81MG TABLET PO SCH (09:41)
[2019-09-16] MEDS: POLYETHYLENE GLYCOL 3350 (17GM) 1 DOSE PACK PO SCH (09:41)
[2019-09-16] MEDS: LACTOBACILLUS GG CAPSULE PO SCH (09:41)
[2019-09-16] MEDS: ONDANSETRON HCL 4MG TABLET PO PRN ×2 (09:41→15:11)
[2019-09-16] MEDS: METFORMIN HCL 500MG TABLET PO SCH ×2 (09:41→17:37)
[2019-09-16] MEDS: DOCUSATE SODIUM 100MG CAPSULE PO SCH ×2 (09:41→17:37)
[2019-09-16] MEDS: HEPARIN 5000 UNITS/ML VIAL SUBCUT SCH ×2 (09:41→21:20)
[2019-09-16] MEDS: ACETAMINOPHEN 325MG TABLET PO PRN ×2 (09:58→18:53)
[2019-09-16] MEDS: BACLOFEN 10MG TABLET PO PRN (12:33)
[2019-09-16 20:00] VITALS: BP 124/49
[2019-09-16] MEDS: ATORVASTATIN CALCIUM 20MG TABLET PO SCH (21:20)
[2019-09-16] MEDS: LIDOCAINE 5% PATCH TOP SCH (21:25)
[2019-09-16] MEDS: OXYCODONE HCL 10MG TABLET SR 12HR PO PRN (22:43)
[2019-09-16] MEDS: INSULIN GLARGINE UD 100 UNITS/ML SYR SUBCUT SCH (22:48)
[2019-09-17] MEDS: LORAZEPAM 1MG TABLET PO PRN ×2 (00:40→11:22)
[2019-09-17] MEDS: ALBUTEROL (0.083%) 2.5MG/3ML NEB HHN SCH ×4 (02:16→21:20)
[2019-09-17] MEDS: BLOOD SUGAR DIAGNOSTIC STRIP TEST SCH ×4 (05:37→21:00)
[2019-09-17] MEDS: GABAPENTIN 300MG CAPSULE PO SCH ×3 (05:37→20:57)
[2019-09-17] MEDS: INSULIN LISPRO 100 UNITS/ML SUBCUT SCH ×4 (05:38→22:44)
[2019-09-17] MEDS: OXYCODONE HCL 5MG TABLET PO PRN (06:30)
[2019-09-17 08:18] VITALS: BP 126/65
[2019-09-17] MEDS: POLYETHYLENE GLYCOL 3350 (17GM) 1 DOSE PACK PO SCH (09:00)
[2019-09-17] MEDS: LISINOPRIL 5MG TABLET PO SCH (09:05)
[2019-09-17] MEDS: ONDANSETRON HCL 4MG TABLET PO PRN (09:05)
[2019-09-17] MEDS: ASPIRIN 81MG TABLET PO SCH (09:05)
[2019-09-17] MEDS: FAMOTIDINE 20MG TABLET PO SCH (09:05)
[2019-09-17] MEDS: DOCUSATE SODIUM 100MG CAPSULE PO SCH ×2 (09:05→18:03)
[2019-09-17] MEDS: METFORMIN HCL 500MG TABLET PO SCH ×2 (09:05→18:03)
[2019-09-17] MEDS: LACTOBACILLUS GG CAPSULE PO SCH (09:06)
[2019-09-17] MEDS: HEPARIN 5000 UNITS/ML VIAL SUBCUT SCH ×2 (09:06→20:58)
[2019-09-17] MEDS: BACLOFEN 10MG TABLET PO PRN ×2 (09:27→21:08)
[2019-09-17] MEDS: ACETAMINOPHEN 325MG TABLET PO PRN ×2 (10:39→20:57)
[2019-09-17] MEDS: OXYCODONE HCL 10MG TABLET SR 12HR PO PRN ×2 (15:14→23:44)
[2019-09-17] MEDS: LIDOCAINE 5% PATCH TOP SCH (18:03)
[2019-09-17 20:00] VITALS: BP 111/56
[2019-09-17] MEDS: ATORVASTATIN CALCIUM 20MG TABLET PO SCH (20:57)
[2019-09-17] MEDS ORDERED: LIDOCAINE 5% PATCH TOP SCH (22:00)
[2019-09-17] MEDS: INSULIN GLARGINE UD 100 UNITS/ML SYR SUBCUT SCH (23:36)
[2019-09-18] MEDS: LORAZEPAM 1MG TABLET PO PRN (01:40)
[2019-09-18] MEDS: ALBUTEROL (0.083%) 2.5MG/3ML NEB HHN SCH ×4 (02:39→21:31)
[2019-09-18] MEDS: BLOOD SUGAR DIAGNOSTIC STRIP TEST SCH ×4 (06:39→21:15)
[2019-09-18] MEDS: OXYCODONE HCL 10MG TABLET SR 12HR PO PRN ×3 (06:39→23:02)
[2019-09-18] MEDS: INSULIN LISPRO 100 UNITS/ML SUBCUT SCH ×4 (06:39→21:00)
[2019-09-18] MEDS: GABAPENTIN 300MG CAPSULE PO SCH ×3 (06:40→21:11)
[2019-09-18 08:32] VITALS: BP 111/50
[2019-09-18] MEDS: POLYETHYLENE GLYCOL 3350 (17GM) 1 DOSE PACK PO SCH (08:59)
[2019-09-18] MEDS: FAMOTIDINE 20MG TABLET PO SCH (08:59)
[2019-09-18] MEDS: LACTOBACILLUS GG CAPSULE PO SCH (08:59)
[2019-09-18] MEDS: DOCUSATE SODIUM 100MG CAPSULE PO SCH ×2 (09:00→17:04)
[2019-09-18] MEDS: METFORMIN HCL 500MG TABLET PO SCH ×2 (09:00→17:04)
[2019-09-18] MEDS: ASPIRIN 81MG TABLET PO SCH (09:00)
[2019-09-18] MEDS: LISINOPRIL 5MG TABLET PO SCH (09:00)
[2019-09-18] MEDS: LIDOCAINE 5% PATCH TOP SCH ×3 (09:00→21:21)
[2019-09-18] MEDS: ACETAMINOPHEN 325MG TABLET PO PRN ×3 (09:01→21:12)
[2019-09-18] MEDS: HEPARIN 5000 UNITS/ML VIAL SUBCUT SCH ×2 (09:02→21:16)
[2019-09-18] MEDS: ONDANSETRON HCL 4MG TABLET PO PRN ×2 (11:03→13:50)
[2019-09-18] MEDS ORDERED: LIDOCAINE HCL/EPINEPHRINE 1%-EPI 1:100,000 20 ML VIAL INFIL SCH (11:30)
[2019-09-18] MEDS ORDERED: BUPIVACAINE HCL/PF 0.5% (5MG/ML) 10ML INFIL SCH (11:30)
[2019-09-18] MEDS ORDERED: ETHYL CHLORIDE CAN TOP SCH (11:30)
[2019-09-18] MEDS ORDERED: TRIAMCINOLONE ACETONIDE 40MG/ML 1ML VIAL IM SCH (11:30)
[2019-09-18] MEDS: BACLOFEN 10MG TABLET PO PRN ×2 (11:53→21:15)
[2019-09-18] MEDS: OXYCODONE HCL 5MG TABLET PO PRN (12:01)
[2019-09-18 20:00] VITALS: BP 131/72
[2019-09-18] MEDS: ATORVASTATIN CALCIUM 20MG TABLET PO SCH (21:11)
[2019-09-18] MEDS: INSULIN GLARGINE UD 100 UNITS/ML SYR SUBCUT SCH (23:03)
[2019-09-19] MEDS: LORAZEPAM 1MG TABLET PO PRN ×2 (01:14→22:27)
[2019-09-19] MEDS: ALBUTEROL (0.083%) 2.5MG/3ML NEB HHN SCH ×4 (01:33→19:43)
[2019-09-19] MEDS: BLOOD SUGAR DIAGNOSTIC STRIP TEST SCH ×4 (06:31→21:17)
[2019-09-19] MEDS: GABAPENTIN 300MG CAPSULE PO SCH ×3 (06:31→21:15)
[2019-09-19 06:39] LABS: CHLORIDE 105 mEq/L (98-107)
[2019-09-19 06:47] LABS: HEMATOCRIT 35.2 % (36.0-48.0); HEMOGLOBIN 12.2 g/dL (12.0-16.0); MEAN CORPUSCULAR HEMOGLOBIN 30.1 pg (28.0-32.0); MEAN CORPUSCULAR VOLUME 87.1 fL (81.0-99.0); PLATELET 113 x1000/uL (130-400); RED BLOOD CELL COUNT 4.05 mill/uL (4.2-5.4)
[2019-09-19] MEDS: OXYCODONE HCL 10MG TABLET SR 12HR PO PRN ×2 (06:53→21:16)
[2019-09-19] MEDS: INSULIN LISPRO 100 UNITS/ML SUBCUT SCH ×4 (06:54→21:22)
[2019-09-19 08:00] VITALS: BP 114/56
[2019-09-19] MEDS: LIDOCAINE 5% PATCH TOP SCH ×2 (08:12→21:21)
[2019-09-19] MEDS: METFORMIN HCL 500MG TABLET PO SCH ×2 (08:13→16:00)
[2019-09-19] MEDS: LACTOBACILLUS GG CAPSULE PO SCH (08:13)
[2019-09-19] MEDS: POLYETHYLENE GLYCOL 3350 (17GM) 1 DOSE PACK PO SCH (08:13)
[2019-09-19] MEDS: FAMOTIDINE 20MG TABLET PO SCH (08:13)
[2019-09-19] MEDS: ASPIRIN 81MG TABLET PO SCH (08:13)
[2019-09-19] MEDS: DOCUSATE SODIUM 100MG CAPSULE PO SCH ×2 (08:13→16:00)
[2019-09-19] MEDS: ONDANSETRON HCL 4MG TABLET PO PRN ×4 (08:14→16:00)
[2019-09-19] MEDS: LISINOPRIL 5MG TABLET PO SCH (08:14)
[2019-09-19] MEDS: OXYCODONE HCL 5MG TABLET PO PRN ×3 (09:44→16:44)
[2019-09-19] MEDS: HEPARIN 5000 UNITS/ML VIAL SUBCUT SCH ×2 (10:35→21:17)
[2019-09-19] MEDS: ERGOCALCIFEROL 50000UNITS CAPSULE PO SCH (16:00)
[2019-09-19] MEDS: BACLOFEN 10MG TABLET PO PRN (17:29)
[2019-09-19 20:00] VITALS: BP 123/64
[2019-09-19] MEDS: ATORVASTATIN CALCIUM 20MG TABLET PO SCH (21:15)
[2019-09-19] MEDS: INSULIN GLARGINE UD 100 UNITS/ML SYR SUBCUT SCH (21:21)
[2019-09-20] MEDS: ALBUTEROL (0.083%) 2.5MG/3ML NEB HHN SCH ×4 (01:54→21:57)
[2019-09-20] MEDS: GABAPENTIN 300MG CAPSULE PO SCH ×3 (06:19→21:25)
[2019-09-20] MEDS: BACLOFEN 10MG TABLET PO PRN ×3 (06:19→21:25)
[2019-09-20] MEDS: BLOOD SUGAR DIAGNOSTIC STRIP TEST SCH ×4 (06:19→21:32)
[2019-09-20] MEDS: ACETAMINOPHEN 325MG TABLET PO PRN ×2 (06:19→18:02)
[2019-09-20] MEDS: INSULIN LISPRO 100 UNITS/ML SUBCUT SCH ×4 (06:20→21:58)
[2019-09-20 08:00] VITALS: BP 107/59
[2019-09-20] MEDS: ONDANSETRON HCL 4MG TABLET PO PRN ×2 (08:46→13:27)
[2019-09-20] MEDS: OXYCODONE HCL 10MG TABLET SR 12HR PO PRN ×2 (08:46→21:52)
[2019-09-20] MEDS: LISINOPRIL 5MG TABLET PO SCH (09:00)
[2019-09-20] MEDS: POLYETHYLENE GLYCOL 3350 (17GM) 1 DOSE PACK PO SCH (09:00)
[2019-09-20] MEDS: DOCUSATE SODIUM 100MG CAPSULE PO SCH ×2 (09:23→18:02)
[2019-09-20] MEDS: LIDOCAINE 5% PATCH TOP SCH (09:23)
[2019-09-20] MEDS: ASPIRIN 81MG TABLET PO SCH (09:23)
[2019-09-20] MEDS: METFORMIN HCL 500MG TABLET PO SCH ×2 (09:24→18:02)
[2019-09-20] MEDS: LACTOBACILLUS GG CAPSULE PO SCH (09:24)
[2019-09-20] MEDS: HEPARIN 5000 UNITS/ML VIAL SUBCUT SCH ×2 (09:24→21:54)
[2019-09-20] MEDS: FAMOTIDINE 20MG TABLET PO SCH (09:24)
[2019-09-20] MEDS: OXYCODONE HCL 5MG TABLET PO PRN ×2 (13:13→17:24)
[2019-09-20 20:00] VITALS: BP 119/66
[2019-09-20] MEDS: ATORVASTATIN CALCIUM 20MG TABLET PO SCH (21:25)
[2019-09-20] MEDS: INSULIN GLARGINE UD 100 UNITS/ML SYR SUBCUT SCH (22:26)
[2019-09-21] MEDS: ALBUTEROL (0.083%) 2.5MG/3ML NEB HHN SCH ×4 (00:57→21:28)
[2019-09-21] MEDS: ACETAMINOPHEN 325MG TABLET PO PRN ×2 (02:25→16:50)
[2019-09-21] MEDS: LORAZEPAM 1MG TABLET PO PRN ×2 (02:49→23:34)
[2019-09-21] MEDS: GABAPENTIN 300MG CAPSULE PO SCH ×3 (05:47→21:35)
[2019-09-21] MEDS: BLOOD SUGAR DIAGNOSTIC STRIP TEST SCH ×4 (05:47→20:21)
[2019-09-21] MEDS: INSULIN LISPRO 100 UNITS/ML SUBCUT SCH ×4 (06:49→20:31)
[2019-09-21 07:31] LABS: BASOPHILS % 0.3 % (0.0-2.0); EOSINOPHILS % 0.9 % (0.0-5.0); HEMATOCRIT. 37.1 % (36.0-48.0); HEMOGLOBIN. 12.6 g/dL (12.0-16.0); LYMPHOCYTES % 20.7 % (20.0-50.0); MEAN CORPUSCULAR HEMOGLOBIN 29.8 pg (28.0-32.0); MEAN CORPUSCULAR VOLUME 87.6 fL (81.0-99.0); MEAN PLATELET VOLUME 7.7 fl (7.4-10.4); NEUTROPHILS % 71.1 % (40.0-76.0); PLATELET 132 x1000/uL (130-400); RED BLOOD CELL COUNT 4.24 mill/uL (4.2-5.4); RED CELL DISTRIBUTION WIDTH 14.8 % (11.6-14.6)
[2019-09-21] MEDS: OXYCODONE HCL 10MG TABLET SR 12HR PO PRN ×3 (07:59→20:05)
[2019-09-21 08:00] VITALS: BP 113/56
[2019-09-21] MEDS: ONDANSETRON HCL 4MG TABLET PO PRN (08:41)
[2019-09-21] MEDS: HEPARIN 5000 UNITS/ML VIAL SUBCUT SCH ×2 (08:41→20:21)
[2019-09-21] MEDS: DOCUSATE SODIUM 100MG CAPSULE PO SCH ×2 (08:41→16:33)
[2019-09-21] MEDS: ASPIRIN 81MG TABLET PO SCH (08:41)
[2019-09-21] MEDS: FAMOTIDINE 20MG TABLET PO SCH (08:42)
[2019-09-21] MEDS: METFORMIN HCL 500MG TABLET PO SCH ×2 (08:42→16:33)
[2019-09-21] MEDS: LACTOBACILLUS GG CAPSULE PO SCH (08:42)
[2019-09-21] MEDS: LIDOCAINE 5% PATCH TOP SCH ×4 (08:43→22:19)
[2019-09-21] MEDS: POLYETHYLENE GLYCOL 3350 (17GM) 1 DOSE PACK PO SCH (08:51)
[2019-09-21] MEDS: LISINOPRIL 5MG TABLET PO SCH (08:52)
[2019-09-21] MEDS: BACLOFEN 10MG TABLET PO PRN ×2 (10:42→16:33)
[2019-09-21] MEDS: METHYL SALICYLATE/MENTHOL CREAM 85GM TOP PRN ×4 (10:44→23:34)
[2019-09-21] MEDS: OXYCODONE HCL 5MG TABLET PO PRN (12:25)
[2019-09-21 20:00] VITALS: BP 130/58
[2019-09-21] MEDS: ATORVASTATIN CALCIUM 20MG TABLET PO SCH (20:20)
[2019-09-21] MEDS: INSULIN GLARGINE UD 100 UNITS/ML SYR SUBCUT SCH (21:36)
[2019-09-22] MEDS: ALBUTEROL (0.083%) 2.5MG/3ML NEB HHN SCH ×4 (00:50→21:36)
[2019-09-22] MEDS: OXYCODONE HCL 5MG TABLET PO PRN ×5 (03:59→22:18)
[2019-09-22] MEDS: BLOOD SUGAR DIAGNOSTIC STRIP TEST SCH ×4 (05:56→21:00)
[2019-09-22] MEDS: GABAPENTIN 300MG CAPSULE PO SCH ×3 (05:56→20:47)
[2019-09-22] MEDS: INSULIN LISPRO 100 UNITS/ML SUBCUT SCH ×4 (06:09→21:27)
[2019-09-22 08:00] VITALS: BP 119/62
[2019-09-22] MEDS: METHYL SALICYLATE/MENTHOL CREAM 85GM TOP PRN ×2 (08:57→17:40)
[2019-09-22] MEDS: METFORMIN HCL 500MG TABLET PO SCH ×2 (08:58→17:37)
[2019-09-22] MEDS: ASPIRIN 81MG TABLET PO SCH (08:58)
[2019-09-22] MEDS: LIDOCAINE 5% PATCH TOP SCH ×2 (08:58→21:13)
[2019-09-22] MEDS: DOCUSATE SODIUM 100MG CAPSULE PO SCH ×2 (08:59→17:37)
[2019-09-22] MEDS: FAMOTIDINE 20MG TABLET PO SCH (08:59)
[2019-09-22] MEDS: HEPARIN 5000 UNITS/ML VIAL SUBCUT SCH ×2 (08:59→20:47)
[2019-09-22] MEDS: LACTOBACILLUS GG CAPSULE PO SCH (08:59)
[2019-09-22] MEDS: LISINOPRIL 5MG TABLET PO SCH (09:00)
[2019-09-22] MEDS: POLYETHYLENE GLYCOL 3350 (17GM) 1 DOSE PACK PO SCH (09:00)
[2019-09-22] MEDS: ACETAMINOPHEN 325MG TABLET PO PRN ×2 (11:08→20:28)
[2019-09-22] MEDS: BACLOFEN 10MG TABLET PO PRN ×2 (11:08→17:46)
[2019-09-22 20:00] VITALS: BP 141/77
[2019-09-22] MEDS: LORAZEPAM 1MG TABLET PO PRN (20:28)
[2019-09-22] MEDS: ATORVASTATIN CALCIUM 20MG TABLET PO SCH (20:47)
[2019-09-22] MEDS: INSULIN GLARGINE UD 100 UNITS/ML SYR SUBCUT SCH (21:26)
[2019-09-23] MEDS: ALBUTEROL (0.083%) 2.5MG/3ML NEB HHN SCH ×4 (02:52→20:58)
[2019-09-23] MEDS: OXYCODONE HCL 5MG TABLET PO PRN ×5 (03:02→21:45)
[2019-09-23] MEDS: BLOOD SUGAR DIAGNOSTIC STRIP TEST SCH ×4 (06:30→21:56)
[2019-09-23] MEDS: GABAPENTIN 300MG CAPSULE PO SCH (06:43)
[2019-09-23] MEDS: INSULIN LISPRO 100 UNITS/ML SUBCUT SCH ×4 (07:01→22:57)
[2019-09-23 08:00] VITALS: BP 129/73
[2019-09-23] MEDS: ONDANSETRON HCL 4MG TABLET PO PRN ×2 (08:56→13:14)
[2019-09-23] MEDS: BACLOFEN 10MG TABLET PO PRN (08:56)
[2019-09-23] MEDS: POLYETHYLENE GLYCOL 3350 (17GM) 1 DOSE PACK PO SCH (09:00)
[2019-09-23] MEDS: FAMOTIDINE 20MG TABLET PO SCH (09:30)
[2019-09-23] MEDS: LACTOBACILLUS GG CAPSULE PO SCH (09:30)
[2019-09-23] MEDS: METFORMIN HCL 500MG TABLET PO SCH ×2 (09:30→17:15)
[2019-09-23] MEDS: DOCUSATE SODIUM 100MG CAPSULE PO SCH ×2 (09:31→17:15)
[2019-09-23] MEDS: LISINOPRIL 5MG TABLET PO SCH (09:31)
[2019-09-23] MEDS: ASPIRIN 81MG TABLET PO SCH (09:31)
[2019-09-23] MEDS: HEPARIN 5000 UNITS/ML VIAL SUBCUT SCH ×2 (09:32→21:47)
[2019-09-23] MEDS: LIDOCAINE 5% PATCH TOP SCH ×2 (09:32→21:43)
[2019-09-23 12:35] LABS: CLARITY URINE CLOUDY (CLEAR); COLOR URINE YELLOW (YELLOW); KETONES URINE NEGATIVE (NEGATIVE); LEUKOCYTE ESTERASE URINE 2+ (NEGATIVE); NITRITE URINE POSITIVE (NEGATIVE); OCCULT BLOOD URINE 1+ (NEGATIVE); PH URINE 5.5 (4.5-8.0); PROTEIN URINE NEGATIVE (NEGATIVE); SPECIFIC GRAVITY URINE 1.009 (1.005-1.030); UROBILINOGEN URINE 0.2 E.U./dL (0.2-1.0)
[2019-09-23] MEDS: GABAPENTIN 400MG CAPSULE PO SCH ×2 (13:14→21:42)
[2019-09-23] MEDS: BACLOFEN 10MG TABLET PO SCH ×2 (13:15→21:42)
[2019-09-23 20:00] VITALS: BP 114/67
[2019-09-23] MEDS: ACETAMINOPHEN 325MG TABLET PO PRN (20:12)
[2019-09-23] MEDS: ATORVASTATIN CALCIUM 20MG TABLET PO SCH (21:42)
[2019-09-23] MEDS: INSULIN GLARGINE UD 100 UNITS/ML SYR SUBCUT SCH (23:03)
[2019-09-24] MEDS: ALBUTEROL (0.083%) 2.5MG/3ML NEB HHN SCH ×4 (01:46→20:41)
[2019-09-24] MEDS: ACETAMINOPHEN 325MG TABLET PO PRN ×2 (04:30→18:29)
[2019-09-24] MEDS: GABAPENTIN 400MG CAPSULE PO SCH ×3 (06:22→21:34)
[2019-09-24] MEDS: BACLOFEN 10MG TABLET PO SCH ×3 (06:22→21:35)
[2019-09-24] MEDS: BLOOD SUGAR DIAGNOSTIC STRIP TEST SCH ×4 (06:23→21:38)
[2019-09-24] MEDS: OXYCODONE HCL 5MG TABLET PO PRN ×4 (06:24→21:37)
[2019-09-24] MEDS: INSULIN LISPRO 100 UNITS/ML SUBCUT SCH ×4 (06:32→21:56)
[2019-09-24 08:00] VITALS: BP 111/60
[2019-09-24] MEDS: LISINOPRIL 5MG TABLET PO SCH (09:00)
[2019-09-24] MEDS: POLYETHYLENE GLYCOL 3350 (17GM) 1 DOSE PACK PO SCH (09:00)
[2019-09-24] MEDS: DOCUSATE SODIUM 100MG CAPSULE PO SCH ×2 (09:55→17:57)
[2019-09-24] MEDS: LACTOBACILLUS GG CAPSULE PO SCH (09:55)
[2019-09-24] MEDS: ASPIRIN 81MG TABLET PO SCH (09:55)
[2019-09-24] MEDS: LIDOCAINE 5% PATCH TOP SCH ×2 (09:55→21:38)
[2019-09-24] MEDS: METFORMIN HCL 500MG TABLET PO SCH ×2 (09:56→17:57)
[2019-09-24] MEDS: FAMOTIDINE 20MG TABLET PO SCH (09:56)
[2019-09-24] MEDS: ONDANSETRON HCL 4MG TABLET PO PRN (09:56)
[2019-09-24] MEDS: HEPARIN 5000 UNITS/ML VIAL SUBCUT SCH ×2 (10:11→21:35)
[2019-09-24] MEDS: METHYL SALICYLATE/MENTHOL CREAM 85GM TOP PRN ×3 (10:45→16:10)
[2019-09-24 20:00] VITALS: BP 135/78
[2019-09-24] MEDS: ATORVASTATIN CALCIUM 20MG TABLET PO SCH (21:34)
[2019-09-24] MEDS: INSULIN GLARGINE UD 100 UNITS/ML SYR SUBCUT SCH (22:34)
[2019-09-25] MEDS: ALBUTEROL (0.083%) 2.5MG/3ML NEB HHN SCH ×4 (00:25→20:45)
[2019-09-25] MEDS: LORAZEPAM 1MG TABLET PO PRN (01:16)
[2019-09-25] MEDS: BLOOD SUGAR DIAGNOSTIC STRIP TEST SCH ×4 (05:52→21:35)
[2019-09-25] MEDS: BACLOFEN 10MG TABLET PO SCH ×3 (06:35→21:34)
[2019-09-25] MEDS: GABAPENTIN 400MG CAPSULE PO SCH ×3 (06:35→21:34)
[2019-09-25] MEDS: OXYCODONE HCL 5MG TABLET PO PRN ×4 (06:37→23:14)
[2019-09-25] MEDS: INSULIN LISPRO 100 UNITS/ML SUBCUT SCH ×4 (06:50→22:54)
[2019-09-25 07:04] LABS: BASOPHILS % 0.3 % (0.0-2.0); EOSINOPHILS % 1.4 % (0.0-5.0); HEMATOCRIT. 37.2 % (36.0-48.0); HEMOGLOBIN. 12.7 g/dL (12.0-16.0); MEAN PLATELET VOLUME 7.3 fl (7.4-10.4); MONOCYTES % 7.7 % (2.0-8.0); NEUTROPHILS % 67.6 % (40.0-76.0); PLATELET 148 x1000/uL (130-400); RED BLOOD CELL COUNT 4.23 mill/uL (4.2-5.4); RED CELL DISTRIBUTION WIDTH 15.1 % (11.6-14.6)
[2019-09-25 07:51] LABS: CHLORIDE 105 mEq/L (98-107)
[2019-09-25 07:58] VITALS: BP 129/74
[2019-09-25] MEDS: ASPIRIN 81MG TABLET PO SCH (08:31)
[2019-09-25] MEDS: DOCUSATE SODIUM 100MG CAPSULE PO SCH ×2 (08:31→16:51)
[2019-09-25] MEDS: METFORMIN HCL 500MG TABLET PO SCH ×2 (08:31→16:52)
[2019-09-25] MEDS: HEPARIN 5000 UNITS/ML VIAL SUBCUT SCH ×2 (08:32→21:34)
[2019-09-25] MEDS: LISINOPRIL 5MG TABLET PO SCH (08:32)
[2019-09-25] MEDS: LACTOBACILLUS GG CAPSULE PO SCH (08:32)
[2019-09-25] MEDS: LIDOCAINE 5% PATCH TOP SCH ×2 (08:36→21:35)
[2019-09-25] MEDS: POLYETHYLENE GLYCOL 3350 (17GM) 1 DOSE PACK PO SCH (08:36)
[2019-09-25] MEDS: FAMOTIDINE 20MG TABLET PO SCH (09:46)
[2019-09-25] MEDS: ONDANSETRON HCL 4MG TABLET PO PRN (09:46)
[2019-09-25] MEDS ORDERED: LEVOFLOXACIN 500MG TABLET PO SCH (11:00)
[2019-09-25] MEDS ORDERED: NITROFURANTOIN 100MG M/M CAPSULE PO SCH (12:00)
[2019-09-25 12:18] VITALS: BP 128/69
[2019-09-25] MEDS: METHYL SALICYLATE/MENTHOL CREAM 85GM TOP PRN ×2 (12:30→18:51)
[2019-09-25 16:30] VITALS: BP 116/57
[2019-09-25 20:00] VITALS: BP 122/59
[2019-09-25] MEDS: ATORVASTATIN CALCIUM 20MG TABLET PO SCH (21:34)
[2019-09-25] MEDS: ACETAMINOPHEN 325MG TABLET PO PRN (21:34)
[2019-09-25] MEDS: INSULIN GLARGINE UD 100 UNITS/ML SYR SUBCUT SCH (22:54)
[2019-09-25] MEDS: CEFTRIAXONE 1 G PREMIX 50 ML IV SCH (22:55)
[2019-09-26] MEDS: ALBUTEROL (0.083%) 2.5MG/3ML NEB HHN SCH ×4 (01:14→20:24)
[2019-09-26] MEDS: GABAPENTIN 400MG CAPSULE PO SCH ×3 (06:16→22:09)
[2019-09-26] MEDS: BLOOD SUGAR DIAGNOSTIC STRIP TEST SCH ×4 (06:17→21:45)
[2019-09-26] MEDS: BACLOFEN 10MG TABLET PO SCH ×3 (06:17→22:09)
[2019-09-26] MEDS: ONDANSETRON HCL 4MG TABLET PO PRN ×3 (06:27→15:11)
[2019-09-26] MEDS: OXYCODONE HCL 5MG TABLET PO PRN ×3 (06:30→22:47)
[2019-09-26] MEDS: INSULIN LISPRO 100 UNITS/ML SUBCUT SCH ×4 (07:40→22:57)
[2019-09-26 08:00] VITALS: BP 117/56
[2019-09-26] MEDS: LIDOCAINE 5% PATCH TOP SCH ×2 (08:52→21:45)
[2019-09-26] MEDS: METFORMIN HCL 500MG TABLET PO SCH ×2 (08:52→16:28)
[2019-09-26] MEDS: FAMOTIDINE 20MG TABLET PO SCH (08:53)
[2019-09-26] MEDS: HEPARIN 5000 UNITS/ML VIAL SUBCUT SCH ×2 (08:53→21:45)
[2019-09-26] MEDS: DOCUSATE SODIUM 100MG CAPSULE PO SCH ×2 (08:53→16:28)
[2019-09-26] MEDS: ASPIRIN 81MG TABLET PO SCH (08:53)
[2019-09-26] MEDS: LACTOBACILLUS GG CAPSULE PO SCH (08:53)
[2019-09-26] MEDS: LISINOPRIL 5MG TABLET PO SCH (09:00)
[2019-09-26] MEDS: METHYL SALICYLATE/MENTHOL CREAM 85GM TOP PRN ×2 (09:03→16:29)
[2019-09-26] MEDS: POLYETHYLENE GLYCOL 3350 (17GM) 1 DOSE PACK PO SCH (10:49)
[2019-09-26] MEDS: ACETAMINOPHEN 325MG TABLET PO PRN ×2 (10:53→19:41)
[2019-09-26] MEDS ORDERED: BISACODYL 10MG SUPP PR NR (16:15)
[2019-09-26] MEDS: ERGOCALCIFEROL 50000UNITS CAPSULE PO SCH (16:28)
[2019-09-26] MEDS: CEFTRIAXONE 1 G PREMIX 50 ML IV SCH (18:00)
[2019-09-26 20:00] VITALS: BP 122/79
[2019-09-26] MEDS ORDERED: OXYCODONE HCL 5MG TABLET PO PRN (21:20)
[2019-09-26] MEDS: ATORVASTATIN CALCIUM 20MG TABLET PO SCH (21:45)
[2019-09-26] MEDS: INSULIN GLARGINE UD 100 UNITS/ML SYR SUBCUT SCH (22:57)
[2019-09-27] MEDS: ALBUTEROL (0.083%) 2.5MG/3ML NEB HHN SCH ×4 (01:56→20:25)
[2019-09-27] MEDS: GABAPENTIN 400MG CAPSULE PO SCH ×3 (05:49→21:21)
[2019-09-27] MEDS: BACLOFEN 10MG TABLET PO SCH ×3 (05:49→21:21)
[2019-09-27] MEDS: BLOOD SUGAR DIAGNOSTIC STRIP TEST SCH ×4 (05:56→21:00)
[2019-09-27] MEDS: OXYCODONE HCL 5MG TABLET PO PRN ×4 (05:56→22:10)
[2019-09-27] MEDS: INSULIN LISPRO 100 UNITS/ML SUBCUT SCH ×4 (07:03→21:59)
[2019-09-27 08:00] VITALS: BP 123/69
[2019-09-27] MEDS: ONDANSETRON HCL 4MG TABLET PO PRN ×2 (08:40→13:10)
[2019-09-27] MEDS: HEPARIN 5000 UNITS/ML VIAL SUBCUT SCH ×2 (08:40→21:23)
[2019-09-27] MEDS: METFORMIN HCL 500MG TABLET PO SCH ×2 (08:40→16:35)
[2019-09-27] MEDS: LACTOBACILLUS GG CAPSULE PO SCH (08:40)
[2019-09-27] MEDS: LIDOCAINE 5% PATCH TOP SCH ×2 (08:41→21:22)
[2019-09-27] MEDS: DOCUSATE SODIUM 100MG CAPSULE PO SCH ×2 (08:41→16:36)
[2019-09-27] MEDS: ASPIRIN 81MG TABLET PO SCH (08:41)
[2019-09-27] MEDS: LISINOPRIL 5MG TABLET PO SCH (08:49)
[2019-09-27] MEDS: POLYETHYLENE GLYCOL 3350 (17GM) 1 DOSE PACK PO SCH (08:49)
[2019-09-27] MEDS: FAMOTIDINE 20MG TABLET PO SCH (09:45)
[2019-09-27] MEDS: METHYL SALICYLATE/MENTHOL CREAM 85GM TOP PRN (13:10)
[2019-09-27] MEDS: ACETAMINOPHEN 325MG TABLET PO PRN (15:45)
[2019-09-27 16:18] LABS: BG BASE EXCESS -0.6 mmol/L (-2.0-2.0); BG CARBOXYHEMOGLOBIN 0.9 % (0.5-1.5); BG DEOXYHEMOGLOBIN 3.7 % (0.0-5.0); BG FRACTION INSPIRED OXYGEN 21; BG HCO3 ACT 24.8 mmol/L (22.0-26.0); BG METHEMOGLOBIN 0.2 % (0.0-1.5); BG OXYGEN SATURATION 96.3 % (92.0-98.5); BG OXYHEMOGLOBIN 95.2 % (94.0-97.0); BG PCO2 43.2 mmHg (35.0-45.0); BG PH 7.376 (7.350-7.450); BG PO2 85.7 mmHg (75.0-100.0); BG SAMPLE SITE RIGHT RADIAL; BG TOTAL HEMOGLOBIN 13.9 g/dL (12.0-18.0); BG VENT MODE ROOM AIR
[2019-09-27] MEDS: BISACODYL 10MG SUPP PR PRN (16:36)
[2019-09-27] MEDS: CEFTRIAXONE 1 G PREMIX 50 ML IV SCH (17:08)
[2019-09-27 20:00] VITALS: BP 130/70
[2019-09-27] MEDS: ATORVASTATIN CALCIUM 20MG TABLET PO SCH (21:21)
[2019-09-27] MEDS: INSULIN GLARGINE UD 100 UNITS/ML SYR SUBCUT SCH (22:25)
[2019-09-28] MEDS: ALBUTEROL (0.083%) 2.5MG/3ML NEB HHN SCH ×3 (00:28→20:48)
[2019-09-28] MEDS: GABAPENTIN 400MG CAPSULE PO SCH ×3 (05:54→21:23)
[2019-09-28] MEDS: BACLOFEN 10MG TABLET PO SCH ×3 (05:54→21:24)
[2019-09-28] MEDS: BLOOD SUGAR DIAGNOSTIC STRIP TEST SCH ×4 (05:55→20:27)
[2019-09-28] MEDS: OXYCODONE HCL 5MG TABLET PO PRN ×4 (05:55→22:05)
[2019-09-28] MEDS: INSULIN LISPRO 100 UNITS/ML SUBCUT SCH ×4 (06:33→21:28)
[2019-09-28 07:52] VITALS: BP 115/56
[2019-09-28] MEDS: HEPARIN 5000 UNITS/ML VIAL SUBCUT SCH ×2 (08:20→20:20)
[2019-09-28] MEDS: POLYETHYLENE GLYCOL 3350 (17GM) 1 DOSE PACK PO SCH (08:21)
[2019-09-28] MEDS: ASPIRIN 81MG TABLET PO SCH (08:21)
[2019-09-28] MEDS: METFORMIN HCL 500MG TABLET PO SCH ×2 (08:21→16:50)
[2019-09-28] MEDS: LISINOPRIL 5MG TABLET PO SCH (08:21)
[2019-09-28] MEDS: DOCUSATE SODIUM 100MG CAPSULE PO SCH ×2 (08:21→16:50)
[2019-09-28] MEDS: FAMOTIDINE 20MG TABLET PO SCH (08:21)
[2019-09-28] MEDS: LACTOBACILLUS GG CAPSULE PO SCH (08:21)
[2019-09-28] MEDS: LIDOCAINE 5% PATCH TOP SCH ×2 (08:22→20:21)
[2019-09-28] MEDS: METHYL SALICYLATE/MENTHOL CREAM 85GM TOP PRN ×2 (08:22→21:23)
[2019-09-28 11:21] VITALS: BP 111/57
[2019-09-28] MEDS: ONDANSETRON HCL 4MG TABLET PO PRN (13:23)
[2019-09-28 16:48] VITALS: BP 112/57
[2019-09-28] MEDS: CEFTRIAXONE 1 G PREMIX 50 ML IV SCH (17:25)
[2019-09-28 20:00] VITALS: BP 105/52
[2019-09-28] MEDS: ATORVASTATIN CALCIUM 20MG TABLET PO SCH (20:20)
[2019-09-28] MEDS: ACETAMINOPHEN 325MG TABLET PO PRN (20:20)
[2019-09-28] MEDS: INSULIN GLARGINE UD 100 UNITS/ML SYR SUBCUT SCH (21:29)
[2019-09-29] MEDS: ALBUTEROL (0.083%) 2.5MG/3ML NEB HHN SCH ×4 (00:53→20:40)
[2019-09-29] MEDS: BACLOFEN 10MG TABLET PO SCH ×3 (06:05→21:45)
[2019-09-29] MEDS: GABAPENTIN 400MG CAPSULE PO SCH ×3 (06:05→21:45)
[2019-09-29] MEDS: OXYCODONE HCL 5MG TABLET PO PRN ×3 (06:09→22:10)
[2019-09-29] MEDS: BLOOD SUGAR DIAGNOSTIC STRIP TEST SCH ×4 (06:54→21:48)
[2019-09-29] MEDS: INSULIN LISPRO 100 UNITS/ML SUBCUT SCH ×4 (06:58→22:00)
[2019-09-29 08:00] VITALS: BP 113/64
[2019-09-29] MEDS: POLYETHYLENE GLYCOL 3350 (17GM) 1 DOSE PACK PO SCH (09:15)
[2019-09-29] MEDS: LIDOCAINE 5% PATCH TOP SCH ×2 (09:16→21:48)
[2019-09-29] MEDS: HEPARIN 5000 UNITS/ML VIAL SUBCUT SCH ×2 (09:16→21:45)
[2019-09-29] MEDS: DOCUSATE SODIUM 100MG CAPSULE PO SCH ×2 (09:16→16:31)
[2019-09-29] MEDS: ASPIRIN 81MG TABLET PO SCH (09:16)
[2019-09-29] MEDS: LISINOPRIL 5MG TABLET PO SCH (09:16)
[2019-09-29] MEDS: LACTOBACILLUS GG CAPSULE PO SCH (09:17)
[2019-09-29] MEDS: FAMOTIDINE 20MG TABLET PO SCH (09:17)
[2019-09-29] MEDS: METFORMIN HCL 500MG TABLET PO SCH ×2 (09:17→16:31)
[2019-09-29] MEDS: BISACODYL 10MG SUPP PR PRN (14:06)
[2019-09-29 14:09] VITALS: BP 120/62
[2019-09-29] MEDS: CEFTRIAXONE 1 G PREMIX 50 ML IV SCH (17:10)
[2019-09-29] MEDS: ACETAMINOPHEN 325MG TABLET PO PRN (19:37)
[2019-09-29 20:00] VITALS: BP 117/71
[2019-09-29] MEDS: ATORVASTATIN CALCIUM 20MG TABLET PO SCH (21:45)
[2019-09-29] MEDS: METHYL SALICYLATE/MENTHOL CREAM 85GM TOP PRN (22:24)
[2019-09-29] MEDS: INSULIN GLARGINE UD 100 UNITS/ML SYR SUBCUT SCH (22:30)
[2019-09-30] MEDS: ALBUTEROL (0.083%) 2.5MG/3ML NEB HHN SCH ×3 (01:29→11:55)
[2019-09-30] MEDS: GABAPENTIN 400MG CAPSULE PO SCH ×2 (06:07→13:40)
[2019-09-30] MEDS: BLOOD SUGAR DIAGNOSTIC STRIP TEST SCH ×3 (06:08→17:25)
[2019-09-30] MEDS: BACLOFEN 10MG TABLET PO SCH ×2 (06:08→13:40)
[2019-09-30] MEDS: OXYCODONE HCL 5MG TABLET PO PRN ×3 (06:08→16:46)
[2019-09-30] MEDS: METHYL SALICYLATE/MENTHOL CREAM 85GM TOP PRN ×2 (06:42→09:48)
[2019-09-30] MEDS: INSULIN LISPRO 100 UNITS/ML SUBCUT SCH ×3 (06:47→18:04)
[2019-09-30 08:00] VITALS: BP 120/59
[2019-09-30] MEDS: FAMOTIDINE 20MG TABLET PO SCH (08:53)
[2019-09-30] MEDS: METFORMIN HCL 500MG TABLET PO SCH ×2 (08:53→16:41)
[2019-09-30] MEDS: ASPIRIN 81MG TABLET PO SCH (08:53)
[2019-09-30] MEDS: LACTOBACILLUS GG CAPSULE PO SCH (08:53)
[2019-09-30] MEDS: HEPARIN 5000 UNITS/ML VIAL SUBCUT SCH ×2 (08:54→19:04)
[2019-09-30] MEDS: POLYETHYLENE GLYCOL 3350 (17GM) 1 DOSE PACK PO SCH (08:54)
[2019-09-30] MEDS: DOCUSATE SODIUM 100MG CAPSULE PO SCH ×2 (08:54→16:41)
[2019-09-30] MEDS: LISINOPRIL 5MG TABLET PO SCH (09:00)
[2019-09-30] MEDS: LIDOCAINE 5% PATCH TOP SCH ×2 (09:48→19:04)
[2019-09-30] MEDS: ONDANSETRON HCL 4MG TABLET PO PRN (10:00)
[2019-09-30 14:51] VITALS: BP 120/59
[2019-09-30] MEDS: CEFTRIAXONE 1 G PREMIX 50 ML IV SCH ×2 (17:29→17:34)
[2019-09-30 19:04] VITALS: BP 141/77
== END 2019-09-30 19:22 | DRG 551 ==
PROVIDERS: ADMIT Physical Medicine & Rehabilitation Spinal Cord Injury Medicine; ATTEND Internal Medicine
DX: S12.100A Unspecified displaced fracture of second cervical vertebra, initial encounter for closed fracture (principal); G82.50 Quadriplegia, unspecified; I77.71 Dissection of carotid artery; I77.74 Dissection of vertebral artery; S06.9X9A Unspecified intracranial injury with loss of consciousness of unspecified duration, initial encounter; G81.94 Hemiplegia, unspecified affecting left nondominant side; K59.2 Neurogenic bowel, not elsewhere classified; L03.90 Cellulitis, unspecified; N39.0 Urinary tract infection, site not specified; S15.0 Injury of carotid artery of neck; Z16.29 Resistance to other single specified antibiotic; N13.6 Pyonephrosis; S12.200A Unspecified displaced fracture of third cervical vertebra, initial encounter for closed fracture; E11.9 Type 2 diabetes mellitus without complications; E78.00 Pure hypercholesterolemia, unspecified; J45.909 Unspecified asthma, uncomplicated; E78.5 Hyperlipidemia, unspecified; F39 Unspecified mood [affective] disorder; F41.0 Panic disorder [episodic paroxysmal anxiety]; I10 Essential (primary) hypertension; G83.81 Brown-Sequard syndrome; I95.1 Orthostatic hypotension; K59.00 Constipation, unspecified; L40.9 Psoriasis, unspecified; W18.39XA Other fall on same level, initial encounter; R53.81 Other malaise; D69.6 Thrombocytopenia, unspecified; M19.012 Primary osteoarthritis, left shoulder; M72.0 Palmar fascial fibromatosis [Dupuytren]; B96.89 Other specified bacterial agents as the cause of diseases classified elsewhere; N31.9 Neuromuscular dysfunction of bladder, unspecified; R13.10 Dysphagia, unspecified; Z87.440 Personal history of urinary (tract) infections; Y93.89 Activity, other specified; Y92.89 Other specified places as the place of occurrence of the external cause; Y99.8 Other external cause status; Z88.2 Allergy status to sulfonamides; Z79.899 Other long term (current) drug therapy; Z79.82 Long term (current) use of aspirin; Z82.49 Family history of ischemic heart disease and other diseases of the circulatory system; Z83.3 Family history of diabetes mellitus; Z98.1 Arthrodesis status
CPT/HCPCS: 36415; 36600; 70496; 70498; 70551; 71045; 80048; 80053; 81003; 82375; 82805; 82962; 84134; 85025; 85027; 87077; 87186; 92523; 92610; 93306; 93970; 94640; 97110; 97112; 97116; 97163; 97167; 97530; 97535; 97760; A4565; C1893; J0696; J1644; J1815; J3301; J3490; J7611; Q0162; Q9967